=== PATIENT | female | born 1940 | race Caucasian/White ===

== ENCOUNTER 2018-01-10 18:10 | Emergency (ER) | payer MEDICARE ==
[~2018-01-10] VITALS: Ht 167.6 cm; Wt 93.0 kg
[2018-01-10 18:10] VITALS: BP_SYST 160
--- NOTE | 2018-01-10 18:11 | NUR ---
Patient brought in by BLS c/c right hip pain presents with external rotation s/p fall backwards, received morphine 4mg and zofran 4mg IV prior to arrival. IV 20g left AC placed flushed and patent.
[2018-01-10] MEDS ORDERED: NACL 0.9% 1,000 ML IV ONE (18:24)
[2018-01-10] MEDS ORDERED: MORPHINE 4 MG/ML INJ. SYRINGE IVP ONE (18:30)
[2018-01-10 18:50] LABS: BASOPHILS # (AUTO) 0.1 K/uL (0.0-0.2); BASOPHILS % (AUTO) 1.3 % (0.0-2.0); EOSINOPHILS # (AUTO) 0.2 K/uL (0.0-0.4); EOSINOPHILS % (AUTO) 2.1 % (0.0-4.0); HEMATOCRIT 40.5 % (36-48); HEMOGLOBIN 12.9 g/dL (12.0-16.0); LYMPHOCYTES # (AUTO) 2.2 K/uL (1.0-5.5); LYMPHOCYTES % (AUTO) 27.5 % (20.5-51.5); MEAN CORPUSCULAR HEMOGLOBIN 29 pg (27-31); MEAN CORPUSCULAR HGB CONC 32 % (32-36); MEAN CORPUSCULAR VOLUME 92 fL (79.0-98.0); MONOCYTES # (AUTO) 0.6 K/uL (0.0-1.0); MONOCYTES % (AUTO) 7.2 % (1.7-9.3); NEUTROPHILS # (AUTO) 4.9 K/uL (1.8-7.7); NEUTROPHILS % (AUTO) 61.9 % (40.0-70.0); PLATELET COUNT (AUTO) 272 K/uL (130-430); RED BLOOD CELL COUNT(AUTO) 4.43 MIL/uL (4.2-6.2); RED CELL DISTRIBUTION WIDTH 12.7 % (9.0-15.0)
[2018-01-10 19:00] LABS: ANION GAP 7 (5-15); CALCIUM 9.3 mg/dL (8.4-11.0); CHLORIDE 105 mmol/L (98-107); CREATININE 1.07 mg/dL (0.55-1.30); GLUCOSE 229 mg/dL (70-99); POTASSIUM 4.5 mmol/L (3.5-5.1); SODIUM SERUM 139 mmol/L (136-145); UREA NITROGEN, BLOOD 20 mg/dL (8-21)
[2018-01-10 19:05] LABS: ALANINE AMINOTRANSFERASE 19 U/L (12-78); ASPARTATE AMINOTRANSFERASE 17 U/L (10-37); TOTAL BILIRUBIN 0.5 mg/dL (0.0-1.0)
--- NOTE | 2018-01-10 19:37 | NUR ---
care assumed. marion is resting comfortably in bed. pain 06/08 currently. awaiting x ray results.
--- NOTE | 2018-01-10 20:12 | NUR ---
patient given warm blanket
[2018-01-10] MEDS ORDERED: MORPHINE 2 MG/ML INJ. SYRINGE IVP ONE (20:15)
--- NOTE | 2018-01-10 20:29 | NUR ---
patient requesting lip balm
--- NOTE | 2018-01-10 20:58 | NUR ---
per [facility] transfer, patient to be picked up at [id number], to be taken to [facility]
--- NOTE | 2018-01-10 21:22 | NUR ---
medics at bedside for transfer
--- NOTE | 2018-01-10 21:36 | NUR ---
Patient to be transferred to [facility]. Is being transferred due to higher level of care. Receiving facility has accepting physician and available space. ER physician has signed transfer form. Patient or responsible democrat has agreed to transfer and signed form. Patient belongings inventoried and will be sent with patient. Copy of nursing notes, lab reports, EKG, Physicians Orders and X-rays to be sent with patient. Report called to [place] at receiving facility. Receiving physician is Dr Ashwin Callaway. [facility] ambulance service has been called for transfer. ETA is [id number].
[2018-01-10 21:49] VITALS: BP_SYST 160
== END 2018-01-10 21:36 | disposition short-term general hospital (02) ==
LOC: SED 18:10
DX: S72.001A Fracture of unspecified part of neck of right femur, initial encounter for closed fracture (principal); E11.9 Type 2 diabetes mellitus without complications; I10 Essential (primary) hypertension; E78.00 Pure hypercholesterolemia, unspecified; Z96.652 Presence of left artificial knee joint; X50.1XXA Overexertion from prolonged static or awkward postures, initial encounter; Y93.89 Activity, other specified; Y92.89 Other specified places as the place of occurrence of the external cause; Y99.8 Other external cause status
CPT/HCPCS: 36415; 71045; 73502; 80053; 85025; 93005; 96361; 96374; 96376; 99285; J2270 ×2; J7030

== ENCOUNTER 2023-06-19 19:50 | Inpatient (IN) | payer MEDICARE ==
[~2023-06-19] VITALS: Ht 165.1 cm; Wt 73.9 kg
[2023-06-19 20:10] VITALS: BP_SYST 132; PULSE 103; RESP 19; TEMP 97.1; O2SAT 95
[2023-06-19 21:49] LABS: BASOPHILS % (AUTO) 0.5 % (0.0-2.0); EOSINOPHILS # (AUTO) 0.1 K/uL (0.0-0.4); EOSINOPHILS % (AUTO) 1.7 % (0.0-4.0); HEMATOCRIT 38.9 % (36-48); HEMOGLOBIN 13.6 g/dL (12.0-16.0); LYMPHOCYTES # (AUTO) 2.2 K/uL (1.0-5.5); LYMPHOCYTES % (AUTO) 25.2 % (20.5-51.5); MEAN CORPUSCULAR HEMOGLOBIN 32 pg (27-31); MEAN CORPUSCULAR HGB CONC 35 % (32-36); MEAN CORPUSCULAR VOLUME 92 fL (79.0-98.0); MONOCYTES # (AUTO) 0.7 K/uL (0.0-1.0); MONOCYTES % (AUTO) 7.4 % (1.7-9.3); NEUTROPHILS # (AUTO) 5.7 K/uL (1.8-7.7); NEUTROPHILS % (AUTO) 65.2 % (40.0-70.0); PLATELET COUNT (AUTO) 244 K/uL (130-430); RED BLOOD CELL COUNT(AUTO) 4.24 MIL/uL (4.2-6.2); RED CELL DISTRIBUTION WIDTH 14.9 % (9.0-15.0); WHITE BLOOD COUNT (AUTO) 8.8 K/uL (4.8-10.8)
[2023-06-19 22:02] LABS: ANION GAP 11 (5-15); CALCIUM 9.3 mg/dL (8.4-11.0); CARBON DIOXIDE 23 mmol/L (23-29); CHLORIDE 98 mmol/L (98-107); CREATININE 0.73 mg/dL (0.55-1.30); GLUCOSE 320 mg/dL (74-106); POTASSIUM 4.2 mmol/L (3.5-5.1); SODIUM SERUM 132 mmol/L (136-145); UREA NITROGEN, BLOOD 19 mg/dL (8-21)
[2023-06-19 22:07] LABS: INR 1.1 (0.8-1.2); PROTHROMBIN TIME 10.9 SECS (9.5-12.5)
[2023-06-19 22:09] LABS: ALANINE AMINOTRANSFERASE 495 U/L (12-78); ALBUMIN 2.4 g/dL (3.4-4.8); ASPARTATE AMINOTRANSFERASE 471 U/L (10-37); BILIRUBIN,DIRECT 5.4 mg/dL (0.0-0.3); TOTAL BILIRUBIN 6.8 mg/dL (0.0-1.0); TOTAL PROTEIN, SERUM 6.2 g/dL (6.4-8.3)
[2023-06-19] MEDS: NACL 0.9% 1,000 ML IV ONE (22:31)
[2023-06-20 00:18] LABS: BILIRUBIN,URINE 2+ (NEGATIVE); BLOOD, URINE 3+ (NEGATIVE); COLOR,URINE YELLOW (YELLOW); GLUCOSE,URINE 3+ (NEGATIVE); KETONES,URINE TRACE (NEGATIVE); LEUKOCYTE ESTERASE ,URINE 2+ (NEGATIVE); NITRITE, URINE NEGATIVE (NEGATIVE); PROTEIN URINE 1+ (NEGATIVE)
[2023-06-20 01:18] LABS: CLARITY/URINE SLIGHTLY CLOUDY (CLEAR)
[2023-06-20 01:25] LABS: BACTERIA,URINE MANY /HPF (None Seen); RBC,URINE 20-50 /HPF (0-3); WBC,URINE 80-100 /HPF (0-3)
[2023-06-20 03:37] LABS: ABG O2 SAT% ESTIMATE 97.5 % (94.0-100.0); BLOOD GAS BASE EXCESS -1.3 mmol/L (-3.0-3.0); BLOOD GAS HCO3 21.3 mmol/L (21.0-27.0); BLOOD GAS PCO2 30.4 mmHg (35.0-45.0); BLOOD GAS PH 7.464 (7.350-7.450); BLOOD GAS PO2 91.7 mmHg (75.0-100.0)
[2023-06-20 03:38] LABS: ALLEN'S TEST POSITIVE (P)
[2023-06-20] MEDS ORDERED: CLOP75TA32 PO (06:05)
[2023-06-20] MEDS ORDERED: METF-1069 PO (06:05)
[2023-06-20] MEDS ORDERED: PIOG15TA67 PO (06:05)
[2023-06-20] MEDS ORDERED: DOCU250C71 PO (06:05)
[2023-06-20] MEDS ORDERED: BISA10SU61 RC (06:05)
[2023-06-20] MEDS ORDERED: LISI20TA30 PO (06:05)
[2023-06-20] MEDS ORDERED: MULT-1117 PO (06:05)
[2023-06-20] MEDS ORDERED: CALC-823 PO (06:05)
[2023-06-20] MEDS ORDERED: PANT40TA45 PO (06:05)
[2023-06-20] MEDS ORDERED: POLY17PO4 PO (06:05)
[2023-06-20] MEDS ORDERED: DULO60CA65 PO (06:05)
[2023-06-20] MEDS ORDERED: ACET-73 PO (06:05)
[2023-06-20] MEDS ORDERED: INSULIN REGULAR, HUMAN 10 UNITS/0.1 ML, 3 ML VIAL ONE (07:58)
[2023-06-20] MEDS: INSULIN REGULAR, HUMAN 100 UNITS/ML, 3 ML VIAL (humuLIN R) SUBCUT PRN (08:01)
[2023-06-20 10:09] VITALS: BP_SYST 112; PULSE 103; RESP 18; TEMP 98.1; O2SAT 98
[2023-06-20] MEDS ORDERED: LORazepam 2 MG/ML VIAL IVP PRN (11:00)
[2023-06-20] MEDS ORDERED: ONDANSETRON HCL 4 MG/2 ML VIAL IVP PRN (11:00)
[2023-06-20] MEDS ORDERED: ACETAMINOPHEN 325 MG TABLET PO PRN ×2 (11:00→11:15)
[2023-06-20] MEDS ORDERED: MULTIVITAMINS TAB 1 TABLET PO SCH (11:00)
[2023-06-20] MEDS: CALCIUM CARBONATE/VITAMIN D3 1 TAB TABLET PO ONE (11:27)
[2023-06-20] MEDS: CLOPIDOGREL BISULFATE 75 MG TABLET PO ONE (11:28)
[2023-06-20] MEDS: PIOGLITAZONE HCL 15 MG TABLET PO ONE (11:28)
[2023-06-20] MEDS: DULoxetine HCL 30 MG CAPSULE.DR (CYMBALTA) PO ONE (11:28)
[2023-06-20] MEDS: MULTIVITAMINS TAB 1 TABLET PO ONE (11:29)
[2023-06-20] MEDS: PANTOPRAZOLE SODIUM 40 MG TAB PO ONE (11:29)
[2023-06-20] MEDS: BISACODYL 10 MG/SUPPOSITORY RC ONE (11:29)
[2023-06-20] MEDS: lisinopriL 20 MG TABLET PO ONE (11:30)
[2023-06-20] MEDS: POLYETHYLENE GLYCOL 3350, 17 GM/ POWD.PACK PO ONE (11:30)
[2023-06-20 11:52] VITALS: BP_SYST 116; PULSE 98; RESP 18; TEMP 97.1; O2SAT 98
[2023-06-20] MEDS: NORMAL SALINE 5 ML DISP.SYRIN IVF SCH (13:02)
[2023-06-20] MEDS ORDERED: [UNRECOGNIZED DRUG - CODE] PO (14:09)
[2023-06-20] MEDS ORDERED: CYM30 PO (14:09)
[2023-06-20] MEDS ORDERED: PIOG30TA71 PO (14:09)
[2023-06-20] MEDS ORDERED: DICL100G60 TP (14:09)
[2023-06-20 16:35] VITALS: BP_SYST 132; PULSE 96; RESP 16; TEMP 97.8; O2SAT 98
[2023-06-20 17:51] VITALS: BP_SYST 132; PULSE 96; RESP 16; TEMP 97.8; O2SAT 98
[2023-06-20] MEDS ORDERED: DOCUSATE SODIUM 250 MG CAPSULE PO SCH (21:00)
[2023-06-21] MEDS ORDERED: DULoxetine HCL 30 MG CAPSULE.DR (CYMBALTA) PO SCH (09:00)
[2023-06-21] MEDS ORDERED: PIOGLITAZONE HCL 15 MG TABLET PO SCH (09:00)
[2023-06-21] MEDS ORDERED: CLOPIDOGREL BISULFATE 75 MG TABLET PO SCH (09:00)
[2023-06-21] MEDS ORDERED: PANTOPRAZOLE SODIUM 40 MG TAB PO SCH (09:00)
[2023-06-21] MEDS ORDERED: lisinopriL 20 MG TABLET PO SCH (09:00)
[2023-06-21] MEDS ORDERED: POLYETHYLENE GLYCOL 3350, 17 GM/ POWD.PACK PO SCH (09:00)
[2023-06-21] MEDS ORDERED: BISACODYL 10 MG/SUPPOSITORY RC SCH (09:00)
[2023-06-21] MEDS ORDERED: MULTIVITAMINS TAB 1 TABLET PO SCH (09:00)
[2023-06-21] MEDS ORDERED: CALCIUM CARBONATE/VITAMIN D3 1 TAB TABLET PO SCH (09:00)
== END 2023-06-20 18:30 | disposition short-term general hospital (02) | DRG 391 ==
LOC: SED 19:50 → SMU 06-20 05:42
PROVIDERS: ADMIT Preventive Medicine Preventive Medicine/Occupational Environmental Medicine; ATTEND Preventive Medicine Preventive Medicine/Occupational Environmental Medicine
DX: R19.09 Other intra-abdominal and pelvic swelling, mass and lump (principal); E43 Unspecified severe protein-calorie malnutrition; R17 Unspecified jaundice; N39.0 Urinary tract infection, site not specified; E11.65 Type 2 diabetes mellitus with hyperglycemia; F03.A0 Unspecified dementia, mild, without behavioral disturbance, psychotic disturbance, mood disturbance, and anxiety; I10 Essential (primary) hypertension; F32.A Depression, unspecified; E78.5 Hyperlipidemia, unspecified; Z74.01 Bed confinement status; Z79.02 Long term (current) use of antithrombotics/antiplatelets; Z86.73 Personal history of transient ischemic attack (TIA), and cerebral infarction without residual deficits; Z87.891 Personal history of nicotine dependence; Z88.5 Allergy status to narcotic agent; Z88.0 Allergy status to penicillin; Z68.27 Body mass index [BMI] 27.0-27.9, adult
CPT/HCPCS: 36415; 36600; 71045; 71260; 76376; 76705; 80048; 80076; 81000; 81001; 81015; 82140; 82803; 82948; 83605; 83690; 84484; 85025; 85610; 85730; 87040; 87086; 87186; 93005; 96361; 96365; 96372; 99285; J1815; J1956; Q9967